=== PATIENT | female | born 1990 | race Two or more races ===

== ENCOUNTER 2023-05-14 08:30 | Emergency (ER) | payer OTHER ==
[~2023-05-14] VITALS: Ht 157.5 cm; Wt 68.9 kg
[2023-05-14 10:37] LABS: HEMATOCRIT 38.9 % (36.0-45.00); HEMOGLOBIN 13.3 g/dL (12.0-15.00); MEAN CELL VOLUME 85.2 fL (80.00-100.00); MEAN CORPUSCULAR HEMOGLOBIN 29.1 pg (27.00-32.0); MEAN CORPUSCULAR HGB CONC 34.2 g/dl (32.0-36.0); PLATELET COUNT 257 K/uL (150-450); RED BLOOD COUNT 4.57 M/uL (4.00-6.00); RED CELL DISTRIBUTION WIDTH 13.9 % (11.5-14.5)
[2023-05-14] MEDS ORDERED: ZITHROMAX500 MG PO (11:29)
[2023-05-14] MEDS ORDERED: TUSNEL LIQUID178 ML PO (11:29)
== END 2023-05-14 12:03 | disposition home or self-care (01) ==
LOC: ER 08:30
PROVIDERS: General Practice
DX: B34.8 Other viral infections of unspecified site (principal); Z20.822 Contact with and (suspected) exposure to COVID-19

== ENCOUNTER 2024-07-05 13:27 | Emergency (ER) | payer OTHER ==
[~2024-07-05] VITALS: Ht 157.5 cm; Wt 66.7 kg
[~2024-07-05 13:27] MED LIST: TUSNEL LIQUID178 ML PO; ZITHROMAX500 MG PO
[2024-07-05] MEDS ORDERED: LEVALBUTEROL HCL 1.25 MG/3 ML SOLUTION IH ONE (15:15)
[2024-07-05] MEDS ORDERED: MONTELUKAST SODIUM 10 MG TABLET PO ONE (15:15)
[2024-07-05] MEDS ORDERED: BENZONATATE 200 MG CAPSULE PO ONE (15:15)
[2024-07-05 15:37] LABS: HEMATOCRIT 36.9 % (36.0-45.00); HEMOGLOBIN 12.7 g/dL (12.0-15.00); MEAN CELL VOLUME 84.3 fL (80.00-100.00); MEAN CORPUSCULAR HGB CONC 34.3 g/dl (32.0-36.0); PLATELET COUNT 273 K/uL (150-450); RED BLOOD COUNT 4.37 M/uL (4.00-6.00); RED CELL DISTRIBUTION WIDTH 13.9 % (11.5-14.5)
== END 2024-07-05 17:25 | disposition home or self-care (01) ==
LOC: ER 13:29
PROVIDERS: General Practice
DX: J00 Acute nasopharyngitis [common cold] (principal); Z20.822 Contact with and (suspected) exposure to COVID-19